=== PATIENT | female | born 1970 ===

== ENCOUNTER → 2021-11-28 | Outpatient (REF) | payer BC | LOC: M LAB REF 16:22 | PROVIDERS: ATTEND Physician Assistant | DX: J02.0 Streptococcal pharyngitis (principal) ==

== ENCOUNTER → 2023-06-29 | Outpatient (REF) | payer OTHER | LOC: M LAB REF 21:32 | PROVIDERS: ATTEND Physician Assistant | DX: J02.9 Acute pharyngitis, unspecified (principal) ==